=== PATIENT | female | born 2000 | race Caucasian/White ===

== ENCOUNTER → 2019-04-18 | Day surgery (SDC) | payer OTHER ==
[~2019-04-18] VITALS: Ht 175.2 cm; Wt 77.6 kg
[~2019-04-18] MED LIST: CLINDAMYCIN HC300 MG PO; DEPO-PROVE150 MG/1 M IM; KEFLEX500 MG PO; MEDROL DOSEPAK4 MG PO; MOTRIN600 MG PO; MOTRIN800 MG PO; NORCO 5-325 TA1 EACH PO; PENICILLIN VK500 MG PO
--- NOTE | ~2019-04-18 | O ---
[place], [place] OPERATIVE NOTE NAME: DASIA DUPREE UNIT #: [id number] ROOM: DOCTOR: SIRISHA CROSS DMD BIRTHDATE: [birth year] DOS: PREOPERATIVE DIAGNOSES: Impacted third molars and anxiety. POSTOPERATIVE DIAGNOSES: Impacted third molars and anxiety. ANESTHESIA: General anesthesia with endotracheal intubation. FLUIDS: Minimal. ESTIMATED BLOOD LOSS: Minimal. COMPLICATIONS: None. CONDITION: To PACU, stable. DESCRIPTION OF PROCEDURE: The patient was brought to the OR and placed in supine position. IV and EKG lines were placed. Endotracheal intubation and general anesthesia was administered. The patient was prepped and draped for oral procedures. Risks and benefits were explained to the patient and parents prior to surgery. Clinical exam and x-rays taken determined complete bony impactions of teeth numbers 1, 16, 17 and 32. PROCEDURES PERFORMED: Full thickness flaps in all 4 quadrants with moderate bone removal and sectioning of teeth #17 and 32. Complete extraction of teeth numbers 1, 16, 17 and 32. Sutured with 4-0 Vicryl, lavaged x 2. Throat pack removed. The patient left the OR in good condition and went to the PACU. SIRISHA CROSS DMD CM:OPRECORD:OPERATIVE NOTE [id number] SIRISHA CROSS DMD 05/11/19 1023 interface
[2019-04-18 06:30] VITALS: BP 124/66
[2019-04-18 09:19] VITALS: BP 105/55
[2019-04-18 09:23] VITALS: BP 118/59
[2019-04-18 09:39] VITALS: BP 107/59
[2019-04-18 09:55] VITALS: BP 107/59
[2019-04-18 09:59] VITALS: BP 123/74
== END | disposition home or self-care (01) ==
LOC: SDC 04-11 14:00
DX: K02.9 Dental caries, unspecified (principal); F43.0 Acute stress reaction; Z82.49 Family history of ischemic heart disease and other diseases of the circulatory system

== ENCOUNTER 2022-03-27 13:29 | Emergency (ER) | payer OTHER ==
[~2022-03-27] VITALS: Ht 175.2 cm; Wt 77.1 kg
[2022-03-27] MEDS ORDERED: NAPROSYN500 MG PO (17:43)
== END 2022-03-27 17:44 | disposition home or self-care (01) ==
LOC: ED 13:29
DX: S46.911A Strain of unspecified muscle, fascia and tendon at shoulder and upper arm level, right arm, initial encounter (principal); S50.12XA Contusion of left forearm, initial encounter; S10.93XA Contusion of unspecified part of neck, initial encounter; Z79.899 Other long term (current) drug therapy; Z79.2 Long term (current) use of antibiotics; Y04.8XXA Assault by other bodily force, initial encounter; Y93.89 Activity, other specified; Y92.89 Other specified places as the place of occurrence of the external cause; Y99.8 Other external cause status

== ENCOUNTER 2023-06-21 00:34 | Emergency (ER) | payer OTHER ==
[~2023-06-21] VITALS: Ht 177.8 cm; Wt 72.6 kg
[~2023-06-21 00:34] MED LIST changes: +NAPROSYN500 MG PO
[2023-06-21 01:11] LABS: BASO # 0.1 10*3/uL (0.0-0.1); BASO % 0.3 % (0.0-1.0); EOS % 0.1 % (1.0-4.0); HEMATOCRIT 38.8 % (37.0-47.0); LYMPH # 1.2 10*3/uL (1.3-4.4); LYMPH % 7.9 % (27.0-41.0); MEAN CELL VOLUME 92.4 fl (81.0-99.0); MEAN CORPUSCULAR HGB 31.2 pg (27.0-31.0); MEAN CORPUSCULAR HGB CONC 33.8 g/dl (33.0-37.0); MEAN PLATELET VOLUME 9.3 fl (9.6-12.3); MONO # 0.9 10*3/uL (0.1-1.0); MONO % 5.8 % (3.0-9.0); NEUT # 13.1 10*3/uL (2.3-7.9); NEUT % 85.6 % (47.0-73.0); PLATELET COUNT AUTOMATED 272 10*3/uL (130-400); WHITE BLOOD COUNT 15.3 10*3/uL (4.8-10.8)
[2023-06-21 01:24] LABS: URINE AMPHETAMINES Negative (1000ng/ml); URINE BARBITURATES Negative (200ng/ml); URINE BENZODIAZEPINES Negative (200ng/ml); URINE CANNABINOIDS (THC) Positive (50ng/ml); URINE COCAINE Negative (300ng/ml); URINE METHADONE Negative (300ng/ml); URINE OPIATES Negative (300ng/ml); URINE PHENCYCLIDINE Negative (25ng/ml)
[2023-06-21 01:33] LABS: ALKALINE PHOSPHATASE 37 U/L (46-116); BUN 20 mg/dl (9-23); CHLORIDE 111 mmol/L (98-107); SGPT/ALT 10 U/L (5-49); TOTAL PROTEIN 6.9 gm/dL (6.0-8.0)
[2023-06-21 01:34] LABS: ETHYL ALCOHOL < 3.0 mg/dl (<3)
== END 2023-06-21 02:54 | disposition home or self-care (01) ==
LOC: ED 00:34
PROVIDERS: Internal Medicine
DX: S01.311A Laceration without foreign body of right ear, initial encounter (principal); T74.21XA Adult sexual abuse, confirmed, initial encounter; S10.93XA Contusion of unspecified part of neck, initial encounter; S40.019A Contusion of unspecified shoulder, initial encounter; S30.0XXA Contusion of lower back and pelvis, initial encounter; Y09 Assault by unspecified means; Y93.89 Activity, other specified; Y92.89 Other specified places as the place of occurrence of the external cause; Y99.8 Other external cause status; Z79.899 Other long term (current) drug therapy

== ENCOUNTER 2024-04-26 23:26 | Emergency (ER) | payer OTHER ==
[2024-04-27] MEDS ORDERED: ceFAZolin sodium 1 GM in SYRINGE INFUSION 10 ML IV ONE (00:05)
[2024-04-27] MEDS ORDERED: MORPHINE Sulfate 2 MG/ML SYR IV ONE ×2 (00:10→02:25)
[2024-04-27] MEDS ORDERED: Ondansetron Hydrochloride 4 MG/2 ML VIAL IV ONE (00:10)
[2024-04-27] MEDS ORDERED: Tdap Vaccine 0.5 ML SYR (Adult Vaccine) IM ONE (00:10)
[2024-04-27] MEDS ORDERED: ceFAZolin sodium 1 GM VIAL ONE (00:25)
[2024-04-27 00:39] LABS: BILIRUBIN Negative (Negative); BLOOD Negative (Negative); CLARITY Clear (Clear); COLOR Yellow (Yellow); GLUCOSE Negative (Negative); KETONE Negative (Negative); LEUKO ESTERASE Negative (Negative); NITRITE Negative (Negative); SPECIFIC GRAVITY <= 1.005 (1.001-1.030); UROBILINOGEN 0.2 E.U./dl (0.0-1.0)
[2024-04-27 00:45] LABS: MUCOUS 1+; WBC 0-2 wbc/hpf (0-5)
[2024-04-27 00:46] LABS: URINE AMPHETAMINES Negative (1000ng/ml); URINE BARBITURATES Negative (200ng/ml); URINE BENZODIAZEPINES Negative (200ng/ml); URINE CANNABINOIDS (THC) Negative (50ng/ml); URINE COCAINE Negative (300ng/ml); URINE METHADONE Negative (300ng/ml); URINE OPIATES Negative (300ng/ml); URINE PHENCYCLIDINE Negative (25ng/ml)
[2024-04-27 02:15] LABS: BASO # 0.1 10*3/uL (0.0-0.1); BASO % 0.6 % (0.0-1.0); EOS # 0.1 10*3/uL (0.0-0.4); EOS % 0.5 % (1.0-4.0); HEMATOCRIT 39.9 % (37.0-47.0); LYMPH # 1.8 10*3/uL (1.3-4.4); LYMPH % 14.2 % (27.0-41.0); MEAN CORPUSCULAR HGB 31.7 pg (27.0-31.0); MEAN CORPUSCULAR HGB CONC 33.3 g/dl (33.0-37.0); MEAN PLATELET VOLUME 9.7 fl (9.6-12.3); MONO # 0.7 10*3/uL (0.1-1.0); MONO % 5.3 % (3.0-9.0); NEUT # 10.1 10*3/uL (2.3-7.9); NEUT % 78.9 % (47.0-73.0); PLATELET COUNT AUTOMATED 242 10*3/uL (130-400); RED CELL DISTRI WIDTH 12.9 % (0-14.5); WHITE BLOOD COUNT 12.8 10*3/uL (4.8-10.8)
[2024-04-27 02:38] LABS: ALKALINE PHOSPHATASE 54 U/L (46-116); BUN 13 mg/dl (9-23); CHLORIDE 108 mmol/L (98-107); POTASSIUM 3.6 mmol/L (3.4-5.1); SGPT/ALT 14 U/L (5-49); TOTAL PROTEIN 6.8 gm/dL (6.0-8.0)
== END 2024-04-27 02:49 | disposition short-term general hospital (02) ==
LOC: ED 23:26
PROVIDERS: Emergency Medicine
DX: S61.210A Laceration without foreign body of right index finger without damage to nail, initial encounter (principal); S60.221A Contusion of right hand, initial encounter; Z79.899 Other long term (current) drug therapy; V89.2XXA Person injured in unspecified motor-vehicle accident, traffic, initial encounter; Y93.55 Activity, bike riding; Y92.410 Unspecified street and highway as the place of occurrence of the external cause; Y99.8 Other external cause status